=== PATIENT | male | born 1960 | race Caucasian/White ===

== ENCOUNTER → 2020-02-10 | Outpatient (CLI) | payer BC ==
--- NOTE | 2020-02-10 15:02 | NM ---
EXAMINATION TYPE: NM bone 3 phase DATE OF EXAM: 02/10/2020 COMPARISON: NONE HISTORY: Hypertrophic bone, left great toe ingrown toenail removed and healed, abnormal x-ray afterwa rds Triple phase bone scintigraphy was performed following the injection of 23.4 mCi Tc 99m MDP. Immedia te images and 5.5 hours post injection images acquired. FINDINGS: Blood flow: There is increased radiotracer accumulation within the mid left tarsal region compared to the right blood flow images. Diffuse increased uptake is present within the left foot compared to th e right foot during the early blood flow images. Blood pool: There is some focal radiotracer within the mid left foot slightly greater than on the rig ht foot. Static images: There is focal radiotracer accumulation within the distal medial great toes bilaterall y. This appears symmetrical. Significant uptake within the mid left foot is not evident. This may be slightly greater within the right foot. IMPRESSION: 1. No suspicious uptake within the left great toe compared to the right. There is some uptake present on delayed images which is nonspecific. 2. No suspicious three-phase uptake identified within the left great toe
== END | disposition home or self-care (01) ==
LOC: RADNMMAIN 07:10
PROVIDERS: ATTEND Podiatrist Foot & Ankle Surgery
DX: M89.30 Hypertrophy of bone, unspecified site (principal)
CPT/HCPCS: 78315; A9503

== ENCOUNTER 2021-08-16 12:32 | Emergency (ER) | payer BC ==
[2021-08-16] MEDS ORDERED: SODIUM CHLORIDE 0.9% 1,000 ML IV STA (15:06)
[2021-08-16 15:08] VITALS: BP 129/91; PULSE 75; RESP 16; TEMP 98.7
[2021-08-16 15:31] LABS: Basophils % (A) 1 %; Eosinophils # (A) 0.1 k/uL (0-0.7); Eosinophils % (A) 1 %; HCT 48.2 % (39.0-53.0); HGB 15.9 gm/dL (13.0-17.5); Lymphocytes # (A) 1.6 k/uL (1.0-4.8); Lymphocytes % (A) 42 %; MCH 31.4 pg (25.0-35.0); MCV 95.2 fL (80.0-100.0); Mean Platelet Volume 8.5; Monocytes # (A) 0.4 k/uL (0-1.0); Monocytes % (A) 10 %; Neutrophils # (A) 1.7 k/uL (1.3-7.7); Neutrophils % (A) 44 %; Platelet Count 233 k/uL (150-450); RBC 5.06 m/uL (4.30-5.90); RDW 12.5 % (11.5-15.5); WBC 3.8 k/uL (3.8-10.6)
[2021-08-16 15:45] LABS: ALT 28 U/L (4-49); AST 47 U/L (17-59); African American GFR (CKD) >90 (>60 ml/min/1.73 sqM); Albumin 4.8 g/dL (3.5-5.0); Alkaline Phosphatase 41 U/L (38-126); Amylase 119 U/L (30-110); Anion Gap 9 mmol/L; Blood Urea Nitrogen 21 mg/dL (9-20); Calcium 9.8 mg/dL (8.4-10.2); Carbon Dioxide 24 mmol/L (22-30); Chloride 105 mmol/L (98-107); Glucose 99 mg/dL (74-99); Lipase 174 U/L (23-300); Non-African American GFR(CKD) 88 (>60 ml/min/1.73 sqM); Sodium 138 mmol/L (137-145); Total Bilirubin 1.2 mg/dL (0.2-1.3); Total Protein 8.5 g/dL (6.3-8.2)
[2021-08-16 15:46] LABS: Potassium 5.6 mmol/L (3.5-5.1)
[2021-08-16 16:16] LABS: Appearance,Urine Clear (Clear); Bilirubin,Urine Negative (Negative); Blood,Urine Negative (Negative); Color,Urine Yellow; Glucose,Urine (UA) Negative (Negative); Hyaline Casts,Urine 1 /lpf (0-2); Ketones,Urine Negative (Negative); Leukocyte Esterase,Urine Negative (Negative); Mucus,Urine Many /hpf; Nitrite,Urine Negative (Negative); PH, Urine 5.5 (5.0-8.0); Protein,Urine 1+ (Negative); RBC,Urine <1 /hpf (0-5); Urobilinogen,Urine <2.0 mg/dL (<2.0); WBC,Urine 1 /hpf (0-5)
--- NOTE | 2021-08-16 16:23 | ED ---
Abdominal Pain HPI - General Chief Complaint: Abdominal Pain Stated Complaint: covid+, abd pain Time Seen by Provider: 08/16/21 14:45 Source: patient Mode of arrival: ambulatory Limitations: no limitations - History of Present Illness Initial Comments: This 70-year-old male presents emergency Department with intermittent abdominal cramping 10 days. Patient states he tested positive for COVID-19 10 days ago when he had runny nose, congestion, dull headache and slight abdominal pain. He states his other symptoms have resolved but still has this abdominal cramping that comes and goes. When present, crampy pain is 5/10. Patient denies any chest pain, shortness of breath, nausea, vomiting, change in bowel or bladder, change in vision. - Related Data Home Medications Medication Instructions Recorded Confirmed No Known Home Medications 08/16/21 08/16/21 Allergies Allergy/AdvReac Type Severity Reaction Status Date / Time No Known Allergies Allergy Verified 08/16/21 16:30 Review of Systems ROS Statement: Those systems with pertinent positive or pertinent negative responses have been documented in the HPI. ROS Other: All systems not noted in ROS Statement are negative. Past Medical History Past Medical History: No Reported History History of Any Multi-Drug Resistant Organisms: None Reported Past Surgical History: No Surgical Hx Reported Past Psychological History: No Psychological Hx Reported Smoking Status: Never smoker Past Alcohol Use History: None Reported Past Drug Use History: None Reported General Exam Limitations: no limitations General appearance: alert, in no apparent distress Head exam: Present: atraumatic, normocephalic, normal inspection Eye exam: Present: EOMI ENT exam: Present: normal exam, mucous membranes moist Neck exam: Present: normal inspection, full ROM Respiratory exam: Present: normal lung sounds bilaterally. Absent: respiratory distress, wheezes, rales, rhonchi, stridor Cardiovascular Exam: Present: regular rate, normal rhythm, normal heart sounds. Absent: systolic murmur, diastolic murmur, rubs, gallop, clicks GI/Abdominal exam: Present: soft, normal bowel sounds. Absent: distended, tenderness, guarding, rebound, rigid Back exam: Present: normal inspection. Absent: tenderness, CVA tenderness (R), CVA tenderness (L) Neurological exam: Present: alert, oriented X3, CN II-XII intact Psychiatric exam: Present: normal affect, normal mood Skin exam: Present: warm, dry, intact, normal color. Absent: rash Course Vital Signs 08/16/21 08/16/21 13:42 15:07 Temperature 98.4 F 98.7 F Pulse Rate 78 75 Respiratory 19 16 Rate Blood Pressure 122/86 129/91 O2 Sat by Pulse 98 96 Oximetry Medical Decision Making - Medical Decision Making This 60-year-old male because the emergency department with COVID-19 and intermitent abdominal cramping 10 days. Fluids given and patient states he feels much better and denies having any abdominal pain. Labs show potassium 5.6 with slight hemolysis. All other labs unremarkable. EKG without any acute abnormalities. Strict return precautions given. Patient agreeable to plan. Patient to follow-up with primary care provider next 1-2 days. Patient sent home in stable condition. - Lab Data Result diagrams: 08/16/21 15:09 08/16/21 15:09 Lab Results 08/16/21 08/16/21 08/16/21 Range/Units 15:09 15:09 15:09 WBC 3.8 (3.8-10.6) k/uL RBC 5.06 (4.30-5.90) m/uL Hgb 15.9 (13.0-17.5) gm/dL Hct 48.2 (39.0-53.0) % MCV 95.2 (80.0-100.0) fL MCH 31.4 (25.0-35.0) pg MCHC 33.0 (31.0-37.0) g/dL RDW 12.5 (11.5-15.5) % Plt Count 233 (150-450) k/uL MPV 8.5 Neutrophils % 44 % Lymphocytes % 42 % Monocytes % 10 % Eosinophils % 1 % Basophils % 1 % Neutrophils # 1.7 (1.3-7.7) k/uL Lymphocytes # 1.6 (1.0-4.8) k/uL Monocytes # 0.4 (0-1.0) k/uL Eosinophils # 0.1 (0-0.7) k/uL Basophils # 0.0 (0-0.2) k/uL Sodium 138 (137-145) mmol/L Potassium 5.6 H (3.5-5.1) mmol/L Chloride 105 (98-107) mmol/L Carbon Dioxide 24 (22-30) mmol/L Anion Gap 9 mmol/L BUN 21 H (9-20) mg/dL Creatinine 0.95 (0.66-1.25) mg/dL Est GFR (CKD-EPI)AfAm >90 (>60 ml/min/1.73 sqM) Est GFR (CKD-EPI)NonAf 88 (>60 ml/min/1.73 sqM) Glucose 99 (74-99) mg/dL Plasma Lactic Acid Darryl 1.1 (0.7-2.0) mmol/L Calcium 9.8 (8.4-10.2) mg/dL Total Bilirubin 1.2 (0.2-1.3) mg/dL AST 47 (17-59) U/L ALT 28 (4-49) U/L Alkaline Phosphatase 41 (38-126) U/L Total Protein 8.5 H (6.3-8.2) g/dL Albumin 4.8 (3.5-5.0) g/dL Amylase 119 H (30-110) U/L Lipase 174 (23-300) U/L Urine Color Urine Appearance (Clear) Urine pH (5.0-8.0) Ur Specific Marlin (1.001-1.035) Urine Protein (Negative) Urine Glucose (UA) (Negative) Urine Ketones (Negative) Urine Blood (Negative) Urine Nitrite (Negative) Urine Bilirubin (Negative) Urine Urobilinogen (<2.0) mg/dL Ur Leukocyte Esterase (Negative) Urine RBC (0-5) /hpf Urine WBC (0-5) /hpf Hyaline Casts (0-2) /lpf Urine Mucus (None) /hpf 08/16/21 Range/Units 15:42 WBC (3.8-10.6) k/uL RBC (4.30-5.90) m/uL Hgb (13.0-17.5) gm/dL Hct (39.0-53.0) % MCV (80.0-100.0) fL MCH (25.0-35.0) pg MCHC (31.0-37.0) g/dL RDW (11.5-15.5) % Plt Count (150-450) k/uL MPV Neutrophils % % Lymphocytes % % Monocytes % % Eosinophils % % Basophils % % Neutrophils # (1.3-7.7) k/uL Lymphocytes # (1.0-4.8) k/uL Monocytes # (0-1.0) k/uL Eosinophils # (0-0.7) k/uL Basophils # (0-0.2) k/uL Sodium (137-145) mmol/L Potassium (3.5-5.1) mmol/L Chloride (98-107) mmol/L Carbon Dioxide (22-30) mmol/L Anion Gap mmol/L BUN (9-20) mg/dL Creatinine (0.66-1.25) mg/dL Est GFR (CKD-EPI)AfAm (>60 ml/min/1.73 sqM) Est GFR (CKD-EPI)NonAf (>60 ml/min/1.73 sqM) Glucose (74-99) mg/dL Plasma Lactic Acid Darryl (0.7-2.0) mmol/L Calcium (8.4-10.2) mg/dL Total Bilirubin (0.2-1.3) mg/dL AST (17-59) U/L ALT (4-49) U/L Alkaline Phosphatase (38-126) U/L Total Protein (6.3-8.2) g/dL Albumin (3.5-5.0) g/dL Amylase (30-110) U/L Lipase (23-300) U/L Urine Color Yellow Urine Appearance Clear (Clear) Urine pH 5.5 (5.0-8.0) Ur Specific Marlin 1.030 (1.001-1.035) Urine Protein 1+ H (Negative) Urine Glucose (UA) Negative (Negative) Urine Ketones Negative (Negative) Urine Blood Negative (Negative) Urine Nitrite Negative (Negative) Urine Bilirubin Negative (Negative) Urine Urobilinogen <2.0 (<2.0) mg/dL Ur Leukocyte Esterase Negative (Negative) Urine RBC <1 (0-5) /hpf Urine WBC 1 (0-5) /hpf Hyaline Casts 1 (0-2) /lpf Urine Mucus Many H (None) /hpf - EKG Data EKG Comments: EKG: Sinus rhythm Ventricular rate 69 bpm MD interval 162 QRS duration 86 QT/QTc 404/[address] depression or elevation noted Disposition Clinical Impression: Abdominal pain Disposition: HOME SELF-CARE Condition: Stable Instructions (If sedation given, give patient instructions): Abdominal Pain (ED) Additional Instructions: Please return to the emergency department with any new or worsening symptoms. Please follow-up with primary care provider next 1-2 days. Is patient prescribed a controlled substance at d/c from ED?: No Referrals: None,Stated [Primary Care Provider] - 1-2 days Time of Disposition: 16:37
== END 2021-08-16 16:39 | disposition home or self-care (01) ==
LOC: EC 12:32
DX: R10.9 Unspecified abdominal pain (principal)
CPT/HCPCS: 36415; 80053; 81001; 82150; 83605; 83690; 85025; 93005; 96360; 99284